=== PATIENT | male | born 1960 | race Caucasian/White ===

== ENCOUNTER 2016-10-20 19:30 | Inpatient (IN) | payer OTHER ==
[~2016-10-20] VITALS: Ht 177.8 cm; Wt 85.0 kg
[2016-10-20] MEDS ORDERED: ONDANSETRON INJ 2 MG/ML 2 ML VIAL IV STA (20:05)
[2016-10-20] MEDS ORDERED: MoRPHine SULFATE 4 MG/ML 1 ML CARP\\VIAL IV STA (20:05)
[2016-10-20] MEDS ORDERED: SODIUM CHLORIDE 0.9% 1000ML 1,000 ML IV STA ×2 (20:05→21:56)
--- NOTE | 2016-10-20 20:11 | EMERGENCY ROOM VISIT NOTE ---
History Report prepared by Nestor: Ryanne Mustafa Under the Supervision of: Dr. Zia Cantu M.D. First contact with patient: 19:48 Chief Complaint: ABDOMINAL PAIN Stated Complaint: PAIN IN STOMACH AREA History of Present Illness The patient is a 56 year old male who presents to the Emergency Room with complaints of a worsening abdominal pain starting four hours ago. The patient states that he has had the pain intermittently the past 2 years that only lasted 15 minutes a piece. He notes that he ate dinner eight hours ago and felt fine after dinner. He complains of hot flashes, diaphoresis, chills, nausea, vomiting, and the pain radiating into his back. He currently rates his pain as an 8/10 in severity. The patient denies abdominal surgeries, shortness of breath , cough, congestion, constipation, diarrhea, leg swelling, and urinary symptoms. He notes that it is not worse with exertion. He denies a history of gallstones, but notes that he has a family history of gallbladder issues. Source of History: patient Onset: four hours ago Position: abdomen Symptom Intensity: 8/10 Quality: other (radiating) Timing: worsening Associated Symptoms: + chills, + diaphoresis, + nausea, + vomiting, + back pain, No cough, No SOB, No diarrhea, No urinary symptoms Note: The patient complains of hot flashes. The patient denies abdominal surgeries, congestion, constipation, leg swelling, being worse with exertion, and a history of gallbladder issues. Review of Systems See HPI for pertinent positives and negatives. A total of ten systems were reviewed and were otherwise negative. Past Medical & Surgical Medical Problems: (1) Acute cholecystitis (2) No known problems Family History FHx: gallbladder disease FHx: gallstones Social History Smoking Status: Never Smoker Marital Status: Housing Status: lives with significant other Occupation Status: employed Current/Historical Medications No Active Prescriptions or Reported Meds Allergies Coded Allergies: No Known Allergies (Unverified , 10/20/16) Physical Exam Vital Signs Date Time Temp Pulse Resp B/P (MAP) Pulse Ox O2 Delivery O2 Flow Rate FiO2 10/21/16 01:04 72 18 154/94 92 Room Air 10/21/16 00:01 66 18 162/96 95 Room Air 10/20/16 20:42 63 18 187/107 97 Room Air 10/20/16 19:37 36.6 63 20 174/88 96 Room Air Physical Exam GENERAL: Awake, alert, uncomfortable but in NAD HENT: Normocephalic, atraumatic. Dry mucus membranes. EYES: Normal conjunctiva. Sclera non-icteric. NECK: Supple. No nuchal rigidity. FROM. No JVD. RESPIRATORY: Clear to auscultation. CARDIAC: Regular rate, normal rhythm. Extremities warm and well perfused. Pulses equal. ABDOMEN: Soft, non-distended. Positive Davis's sign tenderness in RUQ. Mild epigastric tenderness. No peritoneal signs. No rebound or guarding. No masses. RECTAL: Deferred. MUSCULOSKELETAL: Chest examination reveals no tenderness. The back is symmetrical on inspection without obvious abnormality. There is no CVA tenderness to palpation. No joint edema. LOWER EXTREMITIES: Calves are equal size bilaterally and non-tender. No edema. No discoloration. NEURO: Normal sensorium. No sensory or motor deficits noted. SKIN: No rash or jaundice noted. Medical Decision & Procedures ER Provider Diagnostic Interpretation: Radiology results as stated below per my review and radiologist interpretation: CHEST ONE VIEW PORTABLE CLINICAL HISTORY: Chest pain. COMPARISON STUDY: No previous studies for comparison. FINDINGS: The lung volumes are normal. There is no pneumothorax or pleural effusion. No consolidation is identified. Mild opacity along the left heart border likely reflects atelectasis or epicardial fat pad. There is borderline cardiomegaly without evidence of pulmonary edema. IMPRESSION: 1. No acute cardiopulmonary findings. 2. Borderline cardiomegaly. Electronically signed by: Rangel Reed M.D. 10/20/2016 8:17 PM Dictated Date/Time: 10/20/2016 8:17 PM ABDOMINAL ULTRASOUND, RIGHT UPPER QUADRANT HISTORY: RUQ pain - +gallstones, r/o cholecystitis. COMPARISON: None. FINDINGS: Hepatic echogenicity is increased consistent with fatty infiltration. A hypoechoic area within the gallbladder fossa suggests fatty sparing. There is no biliary ductal dilatation. The common bile duct measures 6 mm in caliber. There are numerous gallstones within the gallbladder. There is no gallbladder wall thickening. No pericholecystic fluid is present. The pancreas is largely obscured. No right hydronephrosis is present. IMPRESSION: 1. Cholelithiasis. No gallbladder wall thickening or pericholecystic fluid. 2. Fatty infiltration of the liver with suspected sparing within the gallbladder fossa. 3. No biliary ductal dilatation. 4. Largely obscured pancreas. Electronically signed by: Rangel Reed M.D. 10/20/2016 9:42 PM Dictated Date/Time: 10/20/2016 9:[address] ABDOMEN & PELVIS: Distended gallbladder with several large gallstones. Possible mild wall thickening. No pericholecystic fluid or bruit biliary dilatation. correlate clinically for cholecystitis. Fatty liver. No free intraperitoneal fluid or air. No bowel obstruction. Appendix is normal in appearance. Spleen, pancreas are unremarkable. Small left renal cyst. Radiologist: Tramaine Gutiérrez M.D. Study ready at 23:49 and initial results transmitted at 00:43. Laboratory Results 10/20/16 20:10 Red Blood Count 5.58, Mean Corpuscular Volume 85.8, Mean Corpuscular Hemoglobin 30.1, Mean Corpuscular Hemoglobin Concent 35.1, Mean Platelet Volume 10.1, Neutrophils (%) (Auto) 65.6, Lymphocytes (%) (Auto) 24.3, Monocytes (%) (Auto) 8.1, Eosinophils (%) (Auto) 1.2, Basophils (%) (Auto) 0.4, Neutrophils # (Auto) 7.01, Lymphocytes # (Auto) 2.60, Monocytes # (Auto) 0.86, Eosinophils # (Auto) 0.13, Basophils # (Auto) 0.04 10/20/16 20:10 Test 10/20/16 20:10 10/21/16 00:32 White Blood Count 10.68 K/uL (4.8-10.8) Red Blood Count 5.58 M/uL (4.7-6.1) Hemoglobin 16.8 g/dL (14.0-18.0) Hematocrit 47.9 % (42-52) Mean Corpuscular Volume 85.8 fL (80-100) Mean Corpuscular Hemoglobin 30.1 pg (25-34) Mean Corpuscular Hemoglobin Concent 35.1 g/dl (32-36) Platelet Count 222 K/uL (130-400) Mean Platelet Volume 10.1 fL (7.4-10.4) Neutrophils (%) (Auto) 65.6 % Lymphocytes (%) (Auto) 24.3 % Monocytes (%) (Auto) 8.1 % Eosinophils (%) (Auto) 1.2 % Basophils (%) (Auto) 0.4 % Neutrophils # (Auto) 7.01 K/uL (1.4-6.5) Lymphocytes # (Auto) 2.60 K/uL (1.2-3.4) Monocytes # (Auto) 0.86 K/uL (0.11-0.59) Eosinophils # (Auto) 0.13 K/uL (0-0.5) Basophils # (Auto) 0.04 K/uL (0-0.2) RDW Standard Deviation 41.7 fL (36.4-46.3) RDW Coefficient of Variation 13.2 % (11.5-14.5) Immature Granulocyte % (Auto) 0.4 % Immature Granulocyte # (Auto) 0.04 K/uL (0.00-0.02) Anion Gap 8.0 mmol/L (3-11) Est Creatinine Clear Calc Drug Dose 70.1 ml/min Estimated GFR () 77.3 Estimated GFR (Non- 66.7 BUN/Creatinine Ratio 17.6 (10-20) Calcium Level 9.2 mg/dl (8.5-10.1) Total Bilirubin 0.4 mg/dl (0.2-1) Direct Bilirubin < 0.1 mg/dl (0-0.2) Aspartate Amino Transf (AST/SGOT) 14 U/L (15-37) Alanine Aminotransferase (ALT/SGPT) 41 U/L (12-78) Alkaline Phosphatase 64 U/L (45-117) Troponin I < 0.015 ng/ml (0-0.045) Total Protein 8.2 gm/dl (6.4-8.2) Albumin 4.1 gm/dl (3.4-5.0) Lipase 225 U/L (73-393) Urine Color YELLOW Urine Appearance CLEAR (CLEAR) Urine pH 6.5 (4.5-7.5) Urine Specific [place] > 1.045 (1.000-1.030) Urine Protein NEG (NEG) Urine Glucose (UA) NEG (NEG) Urine Ketones NEG (NEG) Urine Occult Blood NEG (NEG) Urine Nitrite NEG (NEG) Urine Bilirubin NEG (NEG) Urine Urobilinogen NEG (NEG) Urine Leukocyte Esterase NEG (NEG) Laboratory results reviewed by me Medications Administered Medications (Trade) Dose Ordered Sig/[place] Route Start Time Stop Time Status Last Admin Dose Admin Sodium Chloride 1,000 ml @ 999 mls/hr Q1H1M STAT IV 10/20/16 20:05 10/20/16 21:05 DC 10/20/16 20:21 999 MLS/HR Morphine Sulfate (MoRPHine SULFATE INJ) 4 mg NOW STAT IV 10/20/16 20:05 10/20/16 20:08 DC 10/20/16 20:21 4 MG Ondansetron HCl (Zofran Inj) 4 mg NOW STAT IV 10/20/16 20:05 10/20/16 20:08 DC 10/20/16 20:21 4 MG Morphine Sulfate (MoRPHine SULFATE INJ) 8 mg NOW STAT IV 10/20/16 20:40 10/20/16 20:42 DC 10/20/16 20:50 8 MG Hydromorphone HCl (Dilaudid Inj) 1 mg NOW STAT IV 10/20/16 21:06 10/20/16 21:08 DC 10/20/16 21:14 1 MG Sodium Chloride 1,000 ml @ 999 mls/hr Q1H1M STAT IV 10/20/16 21:56 10/20/16 22:56 DC 10/21/16 00:16 999 MLS/HR Sodium Chloride 1,000 ml @ 999 mls/hr Q1H1M STAT IV 10/21/16 00:04 10/21/16 01:04 DC 10/21/16 00:16 999 MLS/HR Hydromorphone HCl (Dilaudid Inj) 1 mg NOW STAT IV 10/21/16 00:04 10/21/16 00:05 DC 10/21/16 00:13 1 MG Ceftriaxone Sodium (Rocephin Inj) 1 gm NOW STAT IV 10/21/16 01:06 10/21/16 01:07 DC 10/21/16 01:48 1 GM Metronidazole (Flagyl / Nss) 500 mg NOW STAT IV 10/21/16 01:06 10/21/16 01:07 DC 10/21/16 01:48 500 MG Procedure Bed Side Ultra Sound: Shows multiple gallstones particularly within the gallbladder and neck. CBD appears normal. Questionable pericholecystic fluid. ECG Indication: abdominal pain Rate (beats per minute): 61 Rhythm: normal sinus Findings: no acute ischemic change, other (normal axis) ED Course 1950: The patient was evaluated in room C2B. A complete history and physical exam was performed. 2004: Ordered Zofran Inj 4 mg IV, Morphine Sulfate 4 mg IV, NSS 1000 ml @ 999 mls/hr IV. 2039: Ordered Morphine Sulfate 8 mg IV. 2105: Ordered Dilaudid Inj 1 mg IV. 2153: I reevaluated the patient and he is doing alright. 2155: Ordered NSS 1000 ml @ 999 mls/hr IV. 0: I reevaluated the patient and he is still in pain. 0004: Ordered Dilaudid Inj 1 mg IV, NSS 1000 ml @ 999 mls/hr IV. 0106: Ordered Metronidazole 500 mg IV, Rocephin Inj 1 gm IV. 0113: Discussed the patient's case with Dr. Bhardwaj. He agrees that the patient should not be discharged home. He asked that the patient be admitted to internal medicine and he will further evaluate the patient in the morning. He recommends doing a hiatal scan. 0129: Discussed the patient's case with Dr. Moore. The patient will be evaluated for further treatment and disposition. Medical Decision I reviewed the patient's past medical history, medications, and the nursing notes as described above. Differential diagnoses include Cholecystitis vs biliary colic, peptic ulcer disease, gastritis, ACS. The patient is a 56-year-old gentleman no significant PMHX who presents emergency Department worsening right upper quadrant abdominal pain per history of present illness. Arrival the patient appears uncomfortable but in no acute distress. Afebrile with stable vital signs. Limited bedside ultrasound of the patient's gallbladder shows multiple large gallstones with question pericholecystic fluid otherwise CBD within normal limits. Formal ultrasound negative for pericholecystic fluid or wall thickening. Labs unremarkable with WBC, LFTs, lipase within normal limits. However, patient required significant doses of narcotics to manage his pain. On reevaluation the patient still has significant tenderness in the right upper quadrant although no peritoneal signs. Considering this, a CT scan was done which showed question of gallbladder wall thickening, recommending clinical correlation. In this setting there is concern for early cholecystitis. Given CTX and flagyl. I discussed the case with surgery, Dr. Bhardwaj, who agreed with admission for IV antibiotics and observation to see how the patient's symptoms evolve, considering the patient has normal labs and no clear radiographic evidence at this time. Further, recommends that a HIDA scan could help clarify if obstruction is present. Patient admitted to medicine for management. Consults Time Called: 101 Consulting Physician: Dr. Bhardwaj- Surgery Returned Call: 112 Discussed the patient's case with Dr. Bhardwaj. He agrees that the patient should not be discharged home. He asked that the patient be admitted to internal medicine and he will further evaluate the patient in the morning. He recommends doing a hiatal scan. Additional Consults: Time Called: 118 Consulted Physician: Dr. Moore- Internal Medicine Returned Call: 128 Additional Comments: Discussed the patient's case with Dr. Moore. The patient will be evaluated for further treatment and disposition. Impression Primary Impression: Cholecystitis Scribe Attestation The scribe's documentation has been prepared under my direction and personally reviewed by me in its entirety. I confirm that the note above accurately reflects all work, treatment, procedures, and medical decision making performed by me. Departure Information Dispostion Being Evaluated By Hospitalist Prescriptions No Active Prescriptions or Reported Meds Referrals Arnaldo Spence M.D. (PCP) Patient Instructions My [facility]
--- NOTE | 2016-10-20 20:19 | DIAGNOSTIC IMAGING REPORT ---
CHEST ONE VIEW PORTABLE CLINICAL HISTORY: Chest pain. COMPARISON STUDY: No previous studies for comparison. FINDINGS: The lung volumes are normal. There is no pneumothorax or pleural effusion. No consolidation is identified. Mild opacity along the left heart border likely reflects atelectasis or epicardial fat pad. There is borderline cardiomegaly without evidence of pulmonary edema. IMPRESSION: 1. No acute cardiopulmonary findings. 2. Borderline cardiomegaly. Electronically signed by: Rangel Reed M.D. 10/20/2016 8:17 PM Dictated Date/Time: 10/20/2016 8:17 PM
[2016-10-20 20:25] LABS: BASO % 0.4 %; BASO ABS # 0.04 K/uL (0-0.2); COMPLETE YES; EOS % 1.2 %; HEMATOCRIT 47.9 % (42-52); IG% 0.4 %; LYMPH % 24.3 %; MEAN CELL VOLUME 85.8 fL (80-100); MEAN CORPUSCULAR HEMOGLOBIN 30.1 pg (25-34); MEAN CORPUSCULAR HGB CONC 35.1 g/dl (32-36); MEAN PLATELET VOLUME 10.1 fL (7.4-10.4); MONO % 8.1 %; NEUT % 65.6 %; PLATELET COUNT 222 K/uL (130-400); RED BLOOD COUNT 5.58 M/uL (4.7-6.1); WHITE BLOOD COUNT 10.68 K/uL (4.8-10.8)
[2016-10-20 20:39] LABS: ALT/SGPT 41 U/L (12-78); BLOOD UREA NITROGEN 21 mg/dl (7-18); BUN/CREATININE RATIO 17.6 (10-20); CALCIUM 9.2 mg/dl (8.5-10.1); CARBON DIOXIDE 26 mmol/L (21-32); CHLORIDE 107 mmol/L (98-107); GLUCOSE 135 mg/dl (70-99); SODIUM 141 mmol/L (136-145)
[2016-10-20] MEDS ORDERED: MoRPHine SULFATE 10 MG/ML CARP/VIAL IV STA (20:40)
[2016-10-20 20:45] LABS: ALKALINE PHOSPHATASE 64 U/L (45-117); AST/SGOT 14 U/L (15-37)
[2016-10-20] MEDS ORDERED: HYDROmorphone INJ 0.5 MG/0.5 ML SYR IV STA (21:06)
[2016-10-20] MEDS ORDERED: HYDROmorphone INJ 1 MG/ML SYR ONE (21:13)
--- NOTE | 2016-10-20 21:43 | DIAGNOSTIC IMAGING REPORT ---
ABDOMINAL ULTRASOUND, RIGHT UPPER QUADRANT HISTORY: RUQ pain - +gallstones, r/o cholecystitis. COMPARISON: None. FINDINGS: Hepatic echogenicity is increased consistent with fatty infiltration. A hypoechoic area within the gallbladder fossa suggests fatty sparing. There is no biliary ductal dilatation. The common bile duct measures 6 mm in caliber. There are numerous gallstones within the gallbladder. There is no gallbladder wall thickening. No pericholecystic fluid is present. The pancreas is largely obscured. No right hydronephrosis is present. IMPRESSION: 1. Cholelithiasis. No gallbladder wall thickening or pericholecystic fluid. 2. Fatty infiltration of the liver with suspected sparing within the gallbladder fossa. 3. No biliary ductal dilatation. 4. Largely obscured pancreas. Electronically signed by: Rangel Reed M.D. 10/20/2016 9:42 PM Dictated Date/Time: 10/20/2016 9:39 PM
[2016-10-21] MEDS ORDERED: HYDROmorphone INJ 0.5 MG/0.5 ML SYR IV STA (00:04)
[2016-10-21] MEDS ORDERED: SODIUM CHLORIDE 0.9% 1000ML 1,000 ML IV STA (00:04)
[2016-10-21] MEDS ORDERED: HYDROmorphone INJ 1 MG/ML SYR ONE (00:11)
[2016-10-21 00:45] LABS: URINE APPEARANCE CLEAR (CLEAR); URINE BILIRUBIN NEG (NEG); URINE COLOR YELLOW; URINE NITRITE NEG (NEG); URINE PH 6.5 (4.5-7.5); URINE SPECIFIC GRAVITY > 1.045 (1.000-1.030); UROBILINOGEN NEG (NEG); ZZUR CULT IF INDIC CLEAN CATCH NO
[2016-10-21] MEDS ORDERED: OPTIRAY 320 IV PRN (00:45)
[2016-10-21 00:50] LABS: MANUAL MICROSCOPIC REQUIRED? NO; REVIEW REQ? NO
[2016-10-21] MEDS ORDERED: CEFTRIAXONE SOD INJ 1 GM ADDVIAL IV STA (01:06)
[2016-10-21] MEDS ORDERED: METRONIDAZOLE 500MG / 100ML NSS IV STA (01:06)
[2016-10-21 03:00] VITALS: BP 175/77; PULSE 71; TEMP 36.8; O2SAT 94; Ht 177.8 cm; Wt 85.0 kg
[2016-10-21] MEDS: HYDROmorphone INJ 0.5 MG/0.5 ML SYR IV PRN ×4 (03:35→21:38)
[2016-10-21] MEDS: ONDANSETRON INJ 2 MG/ML 2 ML VIAL IV PRN ×2 (03:35→21:37)
[2016-10-21 04:07] VITALS: BP 144/77; PULSE 69
[2016-10-21] MEDS: AMPICILLIN/SULBACTAM SOD INJ 3,000 MG in SODIUM CHLORIDE 0.9% 100ML 100 ML IV SCH ×4 (04:10→21:39)
--- NOTE | 2016-10-21 04:46 | HISTORY & PHYSICAL EXAMINATION ---
DATE OF ADMISSION: 10/21/2016 PRIMARY CARE PHYSICIAN: Dr. Spence. CHIEF COMPLAINT: Upper abdominal pain, likely a band since 1:30 p.m. HISTORY OF PRESENT COMPLAINT: He is a 56-year-old male without significant past medical history, apparently complaining of upper abdominal pain like a belch after food since 1:30 p.m. The pain was initially mild and then at around 4:30, it got worse, associated with nausea and he vomited once and he was feeling hot and clammy. He came to the emergency room. At the ER, he was afebrile and plus was 72, blood pressure 154/94, saturating 92% on room air. His blood counts including eosinophils came out to be unremarkable. Ultrasound did show gallstone and clinically, this suspicious for acute cholecystitis. The ER physician did talk with the on-call surgeon who advised the patient to come in and he will evaluate for probable surgery down the line. A HIDA scan will order as well. PAST MEDICAL HISTORY: Nothing significant. PAST SURGICAL HISTORY: Nothing significant. FAMILY HISTORY: Gallstones and gallbladder disease. SOCIAL HISTORY: He is and lives with his significant other. He never smoked and drinks occasionally. ALLERGIES: NKDA. MEDICATIONS: Nothing in the chart. PHYSICAL EXAMINATION: GENERAL: On examination in the emergency room, he was not having any acute symptoms. Pain was controlled. Temperature 36.6, pulse of 72, blood pressure 154/94, saturation 92% on room air. HEENT: Unremarkable. NECK: Supple. No JVD, no bruit. CHEST: Clear to auscultate bilaterally. HEART: S1, S2 regular. ABDOMEN: Soft, and tender in the right upper quadrant, more in the right upper quadrant than in the epigastrium. Davis sign positive. Bowel sounds present. RECTAL: Deferred. EXTREMITIES: Negative. CENTRAL NERVOUS SYSTEM: He was alert, awake, oriented x3. No focal sensory and/or motor deficit appreciated. LABORATORY DATA: Noted today white count was 10.68, H&H 16.8/47.9, and platelet was 222. Sodium 141, potassium 4.0, chloride 107, carbon dioxide 26, BUN 21, creatinine 1.20, and random glucose 135. LFTs unremarkable. Troponin less than 0.01. Lipase 225. UA examination unremarkable. IMAGING DATA: Chest x-ray reported as borderline cardiomegaly. Ultrasound of the gallbladder did show cholelithiasis, no gallbladder wall thickening or pericholecystic fluid. Fatty infiltration of the liver with suspected ____ within the gallbladder fossa, largely obscured pancreas. CT of the abdomen and pelvis has been pending at that time. EKG was in sinus rhythm, rate of 61 per minute, normal axis and no significant ST-T wave changes. IMPRESSION AND PLAN: 1. Right upper quadrant pain very suggestive of cholecystitis and have gallstone on ultrasound. We will get a HIDA scan and the patient has been waiting for CT of the abdomen and pelvis. Started on intravenous Unasyn. We will keep n.p.o. after midnight today and surgery has been consulted for probable cholecystectomy. 2. Deep venous thrombosis prophylaxis with subcutaneous heparin. 3. Code status. He will be a full code. 4. Gastrointestinal prophylaxis with Protonix. In my clinical judgment, the beneficiary meets criteria as per CMS for 2 midnight stay in the hospital. MTDD
[2016-10-21] MEDS: D5NSS + 20MEQ KCL 1,000 ML IV SCH ×3 (04:58→19:41)
[2016-10-21 07:25] VITALS: BP 141/79; PULSE 80; TEMP 36.9; O2SAT 95
[2016-10-21 07:28] LABS: PROTHROMBIN TIME (PATIENT) 10.2 SECONDS (9.0-12.0)
--- NOTE | 2016-10-21 07:28 | DIAGNOSTIC IMAGING REPORT ---
ABDOMEN AND PELVIS CT WITH IV CONTRAST CT DOSE: 450.01 mGy.cm HISTORY: Upper abd pain - r/o cholecystits/diverticulitis TECHNIQUE: Multiaxial CT images of the abdomen and pelvis were performed following the use of intravenous contrast. A dose lowering technique was utilized adhering to the principles of ALARA. COMPARISON STUDY: Abdominal ultrasound 10/20/2016. FINDINGS: Mild dependent changes seen within the lung bases. The heart is mildly enlarged. Tiny fat-containing umbilical hernia. Mild hepatic steatosis. The spleen, adrenal glands, pancreas are unremarkable. A few subcentimeter bilateral renal hypodense lesions. These are too small to characterize. No hydronephrosis. Normal bladder. No pelvic free fluid. No bowel wall thickening or obstruction. Normal appendix. Gallbladder is mildly distended. There are 2 gallstones with the largest measuring 2.4 cm. No definite gallbladder wall thickening. There may be minimal pericholecystic inflammatory change. IMPRESSION: 1. Mildly distended gallbladder containing gallstones. There may be minimal pericholecystic inflammatory change. This raises the possibility of acute cholecystitis. Clinical correlation recommended. 2. Hepatic steatosis. 3. No bowel wall thickening or obstruction. Electronically signed by: Endy Montemayor M.D. 10/21/2016 7:26 AM Dictated Date/Time: 10/21/2016 7:06 AM
--- NOTE | 2016-10-21 11:09 | Pre-Operative Consultation ---
History General Date of Service: Oct 21, 2016. HPI HPI: The patient is a 56 year old male being seen for symptomatic cholelithiasis/ acute cholecystitis. He was admitted with complaints of a worsening abdominal pain starting yesterday. The patient states that he has had the pain intermittently the past 2 years that only lasted 15 minutes a piece. He notes that he ate dinner eight hours ago and felt fine after dinner. He complains of hot flashes, diaphoresis, chills, nausea, vomiting, and the pain radiating into his back. The patient denies abdominal surgeries, shortness of breath, cough, congestion, constipation, diarrhea, leg swelling, and urinary symptoms. Historian: patient Procedure Urgency: Acute Risk Assessment Daily beta parrish use?: No Problem List Medical Problems: (1) Cholecystitis Status: Acute Medical & Surgical History Past Medical History: no pertinent history Past Surgical History: no surgical history Family History Family History: gallbladder disease Social History Hx Tobacco Use In Past Year?: No Smoking Status: Never Smoker Alcohol: none Drug Use: none Marital status: Housing status: lives with family Occupation status: employed Allergies Allergies: Coded Allergies: No Known Allergies (Unverified , 10/20/16) Medications Current Inpatient Medications Current Inpatient Medications Medications (Trade) Dose Ordered Sig/[place] Route Start Time Stop Time Status Last Admin Dose Admin Ioversol (Optiray 320) 100 ml UD PRN IV 10/21/16 00:45 10/25/16 00:44 Heparin Sodium (Porcine) (Heparin Sq 5000 Unit/0.5ml) 5,000 unit Q8H SQ 10/21/16 14:00 11/20/16 13:59 Ondansetron HCl (Zofran Inj) 4 mg Q6H PRN IV 10/21/16 02:30 11/20/16 02:29 10/21/16 03:35 4 MG Ampicillin Sodium/ Sulbactam Sodium 3000 mg/Sodium Chloride 108 ml @ 200 mls/hr Q6H IV 10/21/16 04:00 10/31/16 03:59 10/21/16 09:55 200 MLS/HR Potassium Chloride/Dextrose/ Sod Cl 1,000 ml @ 125 mls/hr Q8H IV 10/21/16 04:00 11/20/16 03:59 10/21/16 04:58 125 MLS/HR Hydromorphone HCl (Dilaudid Inj) 0.5 mg Q3H PRN IV 10/21/16 02:30 11/04/16 02:29 10/21/16 03:35 0.5 MG Review of Systems Review of Systems Constitutional: chills, diaphoresis, denies fever, denies malaise, denies weakness Eyes: reports: no symptoms ENT: reports: no symptoms reported Cardiovascular: denies: chest pain, chest tightness, chest pressure, palpitations, syncope Respiratory: denies: cough, short of breath, stridor, cyanosis Gastrointestinal: abdominal pain, denies constipation, denies diarrhea, nausea , denies vomiting Genitourinary - Male: reports: no symptoms Musculoskeletal: back pain, denies joint pain, denies joint swelling, denies muscle stiffness, denies neck pain Integumentary: denies change in hair/nails, denies dryness, denies lumps, denies rash Neurologic: reports: no symptoms Psychiatric: reports: no symptoms Endocrine: no symptoms Hematologic / Lymphatic: no symptoms Allergic / Immunologic: no symptoms Physical Exam Physical Exam General Appearance: + WD/WN, No distress Ears, Nose, Throat: + normal ENT inspection Neck: No abnormal inspection, No tracheal deviation, No lymphadenophy, No stiffness, No tenderness Respiratory: No chest tenderness, No accessory muscle use, No decreased breath sounds, No rhonchi, No stridor, No wheezing Cardiovascular: No tachycardia, No gallop/S3, No diastolic murmur, No gallop/S4 , No bradycardia, No systolic murmur Abdomen: + tenderness, No abnormal bowel sounds, No rebound, No distension, No hernia, No organomegaly, No guarding Extremities: No deformity, No swelling, No calf tenderness, No inflammation Neurologic/Psychiatric: No motor deficit/weakness, No disorientation, No sensory deficit Skin Characteristics: + diaphoresis, No pallor, No jaundice, No rash Lymphatic: No abnormal adenopathy Diagnostics Labs Labs Results Past 24 Hours Test 10/20/16 20:10 10/21/16 00:32 10/21/16 06:53 Range/Units White Blood Count 10.68 4.8-10.8 K/uL Red Blood Count 5.58 4.7-6.1 M/uL Hemoglobin 16.8 14.0-18.0 g/dL Hematocrit 47.9 42-52 % Mean Corpuscular Volume 85.8 80-100 fL Mean Corpuscular Hemoglobin 30.1 25-34 pg Mean Corpuscular Hemoglobin Concent 35.1 32-36 g/dl Platelet Count 222 130-400 K/uL Mean Platelet Volume 10.1 7.4-10.4 fL Neutrophils (%) (Auto) 65.6 % Lymphocytes (%) (Auto) 24.3 % Monocytes (%) (Auto) 8.1 % Eosinophils (%) (Auto) 1.2 % Basophils (%) (Auto) 0.4 % Neutrophils # (Auto) 7.01 1.4-6.5 K/uL Lymphocytes # (Auto) 2.60 1.2-3.4 K/uL Monocytes # (Auto) 0.86 0.11-0.59 K/uL Eosinophils # (Auto) 0.13 0-0.5 K/uL Basophils # (Auto) 0.04 0-0.2 K/uL RDW Standard Deviation 41.7 36.4-46.3 fL RDW Coefficient of Variation 13.2 11.5-14.5 % Immature Granulocyte % (Auto) 0.4 % Immature Granulocyte # (Auto) 0.04 0.00-0.02 K/uL Sodium Level 141 136-145 mmol/L Potassium Level 4.0 3.5-5.1 mmol/L Chloride Level 107 98-107 mmol/L Carbon Dioxide Level 26 21-32 mmol/L Anion Gap 8.0 3-11 mmol/L Blood Urea Nitrogen 21 7-18 mg/dl Creatinine 1.20 0.60-1.40 mg/dl Est Creatinine Clear Calc Drug Dose 70.1 ml/min Estimated GFR () 77.3 Estimated GFR (Non- 66.7 BUN/Creatinine Ratio 17.6 10-20 Random Glucose 135 70-99 mg/dl Calcium Level 9.2 8.5-10.1 mg/dl Total Bilirubin 0.4 0.2-1 mg/dl Direct Bilirubin < 0.1 0-0.2 mg/dl Aspartate Amino Transf (AST/SGOT) 14 15-37 U/L Alanine Aminotransferase (ALT/SGPT) 41 12-78 U/L Alkaline Phosphatase 64 45-117 U/L Troponin I < 0.015 0-0.045 ng/ml Total Protein 8.2 6.4-8.2 gm/dl Albumin 4.1 3.4-5.0 gm/dl Lipase 225 73-393 U/L Urine Color YELLOW Urine Appearance CLEAR CLEAR Urine pH 6.5 4.5-7.5 Urine Specific [place] > 1.045 1.000-1.030 Urine Protein NEG NEG Urine Glucose (UA) NEG NEG Urine Ketones NEG NEG Urine Occult Blood NEG NEG Urine Nitrite NEG NEG Urine Bilirubin NEG NEG Urine Urobilinogen NEG NEG Urine Leukocyte Esterase NEG NEG Prothrombin Time 10.2 9.0-12.0 SECONDS Prothromb Time International Ratio 1.0 0.9-1.1 Diagnostic Radiology Diagnostic Radiology ABDOMEN AND PELVIS CT WITH IV CONTRAST CT DOSE: 450.01 mGy.cm HISTORY: Upper abd pain - r/o cholecystits/diverticulitis TECHNIQUE: Multiaxial CT images of the abdomen and pelvis were performed following the use of intravenous contrast. A dose lowering technique was utilized adhering to the principles of ALARA. COMPARISON STUDY: Abdominal ultrasound 10/20/2016. FINDINGS: Mild dependent changes seen within the lung bases. The heart is mildly enlarged. Tiny fat-containing umbilical hernia. Mild hepatic steatosis. The spleen, adrenal glands, pancreas are unremarkable. A few subcentimeter bilateral renal hypodense lesions. These are too small to characterize. No hydronephrosis. Normal bladder. No pelvic free fluid. No bowel wall thickening or obstruction. Normal appendix. Gallbladder is mildly distended. There are 2 gallstones with the largest measuring 2.4 cm. No definite gallbladder wall thickening. There may be minimal pericholecystic inflammatory change. IMPRESSION: 1. Mildly distended gallbladder containing gallstones. There may be minimal pericholecystic inflammatory change. This raises the possibility of acute cholecystitis. Clinical correlation recommended. 2. Hepatic steatosis. 3. No bowel wall thickening or obstruction ABDOMINAL ULTRASOUND, RIGHT UPPER QUADRANT HISTORY: RUQ pain - +gallstones, r/o cholecystitis. COMPARISON: None. FINDINGS: Hepatic echogenicity is increased consistent with fatty infiltration. A hypoechoic area within the gallbladder fossa suggests fatty sparing. There is no biliary ductal dilatation. The common bile duct measures 6 mm in caliber. There are numerous gallstones within the gallbladder. There is no gallbladder wall thickening. No pericholecystic fluid is present. The pancreas is largely obscured. No right hydronephrosis is present. IMPRESSION: 1. Cholelithiasis. No gallbladder wall thickening or pericholecystic fluid. 2. Fatty infiltration of the liver with suspected sparing within the gallbladder fossa. 3. No biliary ductal dilatation. 4. Largely obscured pancreas. Impression Assessment and Plan Assessment and Plan Symptomatic cholelithiasis/acute cholecystitis -IV abx -IVF -HIDA scan -to OR in tomorrow for lap saleem
[2016-10-21] MEDS ORDERED: MoRPHine SULFATE 2 MG/ML CARP IV ONE (12:15)
--- NOTE | 2016-10-21 13:10 | DIAGNOSTIC IMAGING REPORT ---
NUCLEAR MEDICINE HEPATOBILIARY SCAN HISTORY: RT upper quadrant pain /cholecystitis COMPARISON: Abdomen and pelvis CTA 1217. TECHNIQUE: Immediately following the intravenous administration of 5.3 mCi Tc-99m Choletec, dynamic anterior abdominal imaging was performed. FINDINGS: Uniform hepatic tracer accumulation is shown. Prompt intrahepatic biliary excretion is seen. The common bile duct and small bowel are visualized at 10 minutes. The gallbladder was not visualized on the initial 60 minutes. Therefore, 2 mg of intravenous morphine was administered and an additional 30 minutes of imaging was performed. The gallbladder was not identified on the additional 30 minutes. IMPRESSION: Above findings are consistent with cystic duct obstruction/acute cholecystitis. Electronically signed by: Endy Montemayor M.D. 10/21/2016 1:09 PM Dictated Date/Time: 10/21/2016 1:07 PM
[2016-10-21] MEDS ORDERED: HEPARIN SOD 5000 UNIT/0.5 ML CARP SQ SCH (14:00)
[2016-10-21 15:40] VITALS: BP 148/87; PULSE 73; TEMP 36.9; O2SAT 94
--- NOTE | 2016-10-21 16:35 | Progress Note ---
Internal Med Progress Note Date of Service: Oct 21, 2016. Provider Documentation: SUBJECTIVE: does not have any pain of discomfort on rt upper quadrant no nausea tolerating clears OBJECTIVE: Vital Signs-as noted below Exam: General-no sign of distress Eyes-sclera non icteric ENT-NAD Neck-no JVD Lungs-CTA, no wheeze or rales Heart-regular S1/S2 Abdomen-soft, minimum RUQ tenderness, no Davis's sign , no rebound Extremities-no lower ext edema or rash Neuro-AAO x3, no focal deficit Lab data as noted below. ASSESSMENT & PLAN: ACUTE CHOLECYSTITIS : presented with RUQ pain USG shows : Cholelithiasis. No gallbladder wall thickening or pericholecystic fluid. HIDA scan : consistent with cystic duct obstruction/acute cholecystitis. appreciate input form Surgery scheduled for Cholecystectomy tomorrow ordered for NPO past midnight FULL CODE DVT PROPHYLAXIS D/c Sub q heparin -scheduled for laparoscopic cholecystectomy tomorrow ordered for SCD /teds DISPOSITION expected to be discharged home when medically stable Vital Signs: Date Time Temp Pulse Resp B/P (MAP) Pulse Ox O2 Delivery O2 Flow Rate FiO2 10/21/16 15:40 36.9 73 19 148/87 (107) 94 Room Air 10/21/16 08:26 Room Air 10/21/16 07:25 36.9 80 17 141/79 (99) 95 Room Air 10/21/16 04:07 69 144/77 (99) 10/21/16 03:00 36.8 71 18 175/77 (109) 94 Room Air 10/21/16 03:00 Room Air 10/21/16 03:00 Room Air 10/21/16 02:49 72 143/89 10/21/16 01:04 72 18 154/94 92 Room Air 10/21/16 00:01 66 18 162/96 95 Room Air 10/20/16 20:42 63 18 187/107 97 Room Air 10/20/16 19:37 36.6 63 20 174/88 96 Room Air Lab Results: Results Past 24 Hours Test 10/20/16 20:10 10/21/16 00:32 10/21/16 06:53 Range/Units White Blood Count 10.68 4.8-10.8 K/uL Red Blood Count 5.58 4.7-6.1 M/uL Hemoglobin 16.8 14.0-18.0 g/dL Hematocrit 47.9 42-52 % Mean Corpuscular Volume 85.8 80-100 fL Mean Corpuscular Hemoglobin 30.1 25-34 pg Mean Corpuscular Hemoglobin Concent 35.1 32-36 g/dl Platelet Count 222 130-400 K/uL Mean Platelet Volume 10.1 7.4-10.4 fL Neutrophils (%) (Auto) 65.6 % Lymphocytes (%) (Auto) 24.3 % Monocytes (%) (Auto) 8.1 % Eosinophils (%) (Auto) 1.2 % Basophils (%) (Auto) 0.4 % Neutrophils # (Auto) 7.01 1.4-6.5 K/uL Lymphocytes # (Auto) 2.60 1.2-3.4 K/uL Monocytes # (Auto) 0.86 0.11-0.59 K/uL Eosinophils # (Auto) 0.13 0-0.5 K/uL Basophils # (Auto) 0.04 0-0.2 K/uL RDW Standard Deviation 41.7 36.4-46.3 fL RDW Coefficient of Variation 13.2 11.5-14.5 % Immature Granulocyte % (Auto) 0.4 % Immature Granulocyte # (Auto) 0.04 0.00-0.02 K/uL Sodium Level 141 136-145 mmol/L Potassium Level 4.0 3.5-5.1 mmol/L Chloride Level 107 98-107 mmol/L Carbon Dioxide Level 26 21-32 mmol/L Anion Gap 8.0 3-11 mmol/L Blood Urea Nitrogen 21 7-18 mg/dl Creatinine 1.20 0.60-1.40 mg/dl Est Creatinine Clear Calc Drug Dose 70.1 ml/min Estimated GFR () 77.3 Estimated GFR (Non- 66.7 BUN/Creatinine Ratio 17.6 10-20 Random Glucose 135 70-99 mg/dl Calcium Level 9.2 8.5-10.1 mg/dl Total Bilirubin 0.4 0.2-1 mg/dl Direct Bilirubin < 0.1 0-0.2 mg/dl Aspartate Amino Transf (AST/SGOT) 14 15-37 U/L Alanine Aminotransferase (ALT/SGPT) 41 12-78 U/L Alkaline Phosphatase 64 45-117 U/L Troponin I < 0.015 0-0.045 ng/ml Total Protein 8.2 6.4-8.2 gm/dl Albumin 4.1 3.4-5.0 gm/dl Lipase 225 73-393 U/L Urine Color YELLOW Urine Appearance CLEAR CLEAR Urine pH 6.5 4.5-7.5 Urine Specific [place] > 1.045 1.000-1.030 Urine Protein NEG NEG Urine Glucose (UA) NEG NEG Urine Ketones NEG NEG Urine Occult Blood NEG NEG Urine Nitrite NEG NEG Urine Bilirubin NEG NEG Urine Urobilinogen NEG NEG Urine Leukocyte Esterase NEG NEG Prothrombin Time 10.2 9.0-12.0 SECONDS Prothromb Time International Ratio 1.0 0.9-1.1
[2016-10-21 22:48] VITALS: BP 130/77; PULSE 78; TEMP 36.8; O2SAT 93
[2016-10-22] VITALS (8 sets, daily range): BP systolic 117–154; BP diastolic 69–91; PULSE 69–87; TEMP 36.5–36.8; O2SAT 91–100
[2016-10-22] MEDS: AMPICILLIN/SULBACTAM SOD INJ 3,000 MG in SODIUM CHLORIDE 0.9% 100ML 100 ML IV SCH ×4 (03:24→21:29)
[2016-10-22] MEDS: D5NSS + 20MEQ KCL 1,000 ML IV SCH ×3 (03:25→21:29)
[2016-10-22] MEDS: HYDROmorphone INJ 0.5 MG/0.5 ML SYR IV PRN ×3 (04:07→22:24)
[2016-10-22] MEDS ORDERED: CEFAZOLIN 2000 MG/60 ML D5W 60 ML IV SCH (06:00)
--- NOTE | 2016-10-22 06:07 | Surgery Progress Note ---
Surgery Progress Note Date of Service Oct 22, 2016. Subjective Post OP Day: HD 2 + complaints (pain almost gone), + flatus, + pain controlled, + diet (NPO), No nausea, No vomiting Objective Vital Signs: Date Time Temp Pulse Resp B/P (MAP) Pulse Ox O2 Delivery O2 Flow Rate FiO2 10/21/16 22:48 36.8 78 16 130/77 (94) 93 Room Air 10/21/16 19:40 Room Air 10/21/16 15:40 36.9 73 19 148/87 (107) 94 Room Air 10/21/16 08:26 Room Air 10/21/16 07:25 36.9 80 17 141/79 (99) 95 Room Air General Appearance: WD/WN, no apparent distress Head: normocephalic, atraumatic Neck: supple, trachea midline Respiratory/Chest: lungs clear Cardiovascular: regular rate, rhythm Abdomen: normal bowel sounds, non distended, soft, + tenderness (moderate) Extremities: non-tender, no pedal edema Laboratory Results: Results Past 24 Hours Test 10/21/16 06:53 Range/Units Prothrombin Time 10.2 9.0-12.0 SECONDS Prothromb Time International Ratio 1.0 0.9-1.1 Assessment & Plan acute cholecystitis -IV abx -feeling better -HIDA c/w acute cholecystitis -to OR today; Dr Garcia will perform lap saleem
[2016-10-22] MEDS ORDERED: DEXAMETHASONE SOD INJ 4 MG/ML VIAL ONE (11:38)
[2016-10-22] MEDS ORDERED: PROPOFOL IV EMULSION 10 MG/ML 20 ML VIAL IV ONE (11:38)
[2016-10-22] MEDS ORDERED: ONDANSETRON INJ 2 MG/ML 2 ML VIAL ONE (11:38)
[2016-10-22] MEDS ORDERED: ROCURONIUM BROMIDE 10 MG/ML 5 ML VIAL ONE ×2 (11:38→12:58)
[2016-10-22] MEDS ORDERED: LIDOCAINE HCL 2% 2 ML VIAL (20MG/ML) ONE (11:38)
[2016-10-22] MEDS ORDERED: MIDAZOLAM HCL 1 MG/ML 2ML VIAL ONE (11:39)
[2016-10-22] MEDS ORDERED: FENTANYL CITRATE INJ 50 MCG/1 ML 2 ML VIAL ONE (11:39)
[2016-10-22] MEDS ORDERED: NALOXONE HCL 0.4 MG/1 ML VIAL/CARP IV PRN (11:45)
[2016-10-22] MEDS ORDERED: HYDROmorphone INJ 2 MG/ML SYR/VIAL IV PRN (11:45)
[2016-10-22] MEDS ORDERED: EpHEDrine SULFATE INJ 50 MG/ML AMP IV PRN (11:45)
[2016-10-22] MEDS ORDERED: FENTANYL CITRATE INJ 50 MCG/1 ML 2 ML VIAL IV PRN (11:45)
[2016-10-22] MEDS ORDERED: FLUMAZENIL 0.1 MG/1 ML 10 ML VIAL IV PRN (11:45)
[2016-10-22] MEDS ORDERED: ATROPINE SULFATE 0.1 MG/ML 5ML SYR IV PRN (11:45)
[2016-10-22] MEDS ORDERED: LABETALOL HCL IV 5 MG/ML 20ML IV PRN (11:45)
[2016-10-22] MEDS ORDERED: MEPERIDINE HCL 25 MG/ML CARP IV PRN (11:45)
[2016-10-22] MEDS ORDERED: PHENYLEPHRINE 100MCG/ML 5ML SYR IV PRN (11:45)
[2016-10-22] MEDS ORDERED: ONDANSETRON INJ 2 MG/ML 2 ML VIAL IV PRN (11:45)
[2016-10-22] MEDS ORDERED: LIDOCAINE HCL 1% 20 ML VIAL ONE (11:56)
[2016-10-22] MEDS ORDERED: BUPIVACAINE 0.5 % 5 MG/1 ML MPF 30ML VIAL ONE (11:57)
--- NOTE | 2016-10-22 11:57 | History & Physical Bridge Note ---
H&P Re-Evaluation Bridge Note: I have examined the patient, reviewed the History & Physical and in the interval since the performance of the History & Physical I have noted the following changes of clinical significance: No changes noted Patient examined at bedside this morning. Afebrile, vitals stable and normal overnight, no acute events. States abdominal pain has now greatly improved. Denies N/V, has been NPO since midnight. Abdomen soft, non distended, non tender to palpation. Indications, risks, benefits and potential complications of laparoscopic, possible open cholecystectomy discussed at length with patient and his family. All questions answered to apparent satisfaction. Patient agrees to proceed with operation and freely signed the consent form.
[2016-10-22] MEDS ORDERED: HYDROmorphone INJ 2 MG/ML SYR/VIAL ONE (12:30)
[2016-10-22] MEDS ORDERED: NEOSTIGMINE METHYLSULFATE 5 MG/5 ML SYR ONE (13:28)
[2016-10-22] MEDS ORDERED: GLYCOPYRROLATE INJ 0.2 MG/ML VIAL ONE (13:28)
[2016-10-22] MEDS ORDERED: OXYCODONE/ACETAMINOPHEN 5-325 TAB PO PRN (14:30)
--- NOTE | 2016-10-22 14:42 | [facility] Operative Report ---
Operative Report Operative Date Oct 22, 2016. Pre-Operative Diagnosis Acute Cholecystitis Post-Operative Diagnosis Acute Cholecystitis Procedure(s) Performed Laparoscopic Cholecystectomy Surgeon Dr. Garcia Dental Front Office Assistant Surgeon(s) none Estimated Blood Loss 5 ml Findings Inflamed gallbladder with inflammatory rind and pus in gallbladder. Large gallstone within the gallbladder. Liver appeared normal. Fluids 1000cc Specimens A. Gallbladder Drains None Anesthesia General anesthesia, 20ml of Local anesthetic: 1% Lidocaine + 1/4% Marcaine Disposition Recovery Room / PACU Indications Berry Villa is a 56 year old man with acute cholecystitis and cholelithiasis. Indications, risks, benefits and potential complications of laparoscopic, possible open cholecystectomy, possible intraoperative cholangiogram discussed at length with the patient and his family. All questions answered to apparent satisfaction. Patient chose to proceed with surgery and freely signed the consent form. Description of Procedure Patient was brought to the operating room and identified as Berry Villa, . He was placed on the operating table in supine position. Anesthesia was induced, and patient was intubated without difficulty. The abdomen was prepped and draped in the usual sterile fashion. A time out was held, verifying correct patient, procedure, positioning, pre operative antibiotics, allergies and available equipment; all were in agreement with time out. A 10mm incision was made just above the umbilicus and carried down through subcutaneous tissue. The fascia was identified, and two Kulwinder clamps were placed for upward traction. The fascia was carefully incised using sharp cautery. The peritoneum was identified, and two hemostats were placed for upward traction. The peritoneum was opened using Metzenbaum scissors, taking care to preserve the underlying abdominal contents. The 10mm Oliva port was placed and insufflation was established. The 10mm endoscope was inserted, and the abdomen explored. The gallbladder was observed to be distended with an inflammatory rind surrounding; the liver appeared normal. A 5mm port was placed in the sub-xiphoid position under direct vision. Two more 5mm ports were placed in the right abdomen approximately 4cm inferior to the costal margin under direct vision. The dome of the gallbladder was grasped and retracted cranially. A second grasper was used to retract the neck of the gallbladder laterally to expose the area of dissection. The gallbladder was aspirated of a few milliliters of cloudy brown fluid to allow for grasping to retract. Omental adhesions were gently brought down using a [place] grasper. Rind was opened both medially and laterally to expose the area of dissection. The cystic artery was identified and dissected out, until it was clearly visualized to be leading into the gallbladder. Behind and slightly lateral to this structure, the cystic duct was identified and carefully dissected free from surrounding fibrinous tissue. This was also clearly visualized to be leading into the gallbladder, with no other extraneous structures; the liver was visualized behind and between these two structures to verify the critical view of safety. The cystic artery was clipped and cut. The cystic duct was also clipped and cut. Next, the gallbladder was dissected off the liver bed using electrocautery. Once liberated from the gallbladder fossa, [id number] endoscope was switched out for the 5mm endoscope, and the 10mm endocatch bag was placed through the umbilical port. The gallbladder was placed in the endocatch bag. The gallbladder was removed from the abdomen; during this process, the umbilical port site incision was extended to allow for the gallbladder, containing a large gallstone, to exit. The gallstone was palpated and estimated to be approximately 3cm long x 2cm wide. The gallbladder was then passed off the field to be taken to pathology. The gallbladder fossa was then inspected, and hemostasis was achieved using electrocautery. The site was thoroughly irrigated and evacuated of irrigation fluid. The ports were then removed under direct vision and observed to be hemostatic. Insufflation was then released. The instrument and sponge counts were verified to be correct x 2 by the nurse in charge. Fascia was closed at the umbilical port site using 0 Vicryl in figure of eight fashion. Skin was closed at all port sites using 4-0 Monocryl, and Dermabond was applied. The patient was then awakened from anesthesia, extubated without difficulty, and taken to the PACU, having suffered no untoward events. I attest to the content of the Intraoperative Record and any orders documented therein. Any exceptions are noted below.
--- NOTE | 2016-10-22 14:53 | Anesthesiology Progress Note ---
Anesthesia Post Op Note Date & Time Oct 22, 2016 at 14:53 Vital Signs Pain Intensity: 0 Vital Signs Past 12 Hours Date Time Temp Pulse Resp B/P (MAP) Pulse Ox O2 Delivery O2 Flow Rate FiO2 10/22/16 14:40 83 16 146/96 94 Mask 10 10/22/16 14:30 97 16 158/90 93 Mask 15 10/22/16 14:20 92 20 146/85 93 Oxymask 15 10/22/16 14:14 36.4 97 16 150/96 93 Oxymask 15 10/22/16 08:48 Room Air 10/22/16 06:50 36.7 69 19 142/87 (105) 92 Room Air Notes Mental Status: alert / awake / arousable, participated in evaluation Pt Amnestic to Procedure: Yes Nausea / Vomiting: adequately controlled Pain: adequately controlled Airway Patency, RR, SpO2: stable & adequate BP & HR: stable & adequate Hydration State: stable & adequate Anesthetic Complications: no major complications apparent
[2016-10-22] MEDS: OXYCODONE/ACETAMINOPHEN 5-325 TAB PO PRN ×2 (16:28→20:28)
--- NOTE | 2016-10-22 18:29 | Progress Note ---
Internal Med Progress Note Date of Service: Oct 22, 2016. Provider Documentation: SUBJECTIVE: s/p laparoscopic cholecystectomy today recovering well post op minimum abdominal pain OBJECTIVE: Vital Signs-as noted below Exam: General-no sign of distress Eyes-sclera non icteric ENT-NAD Neck-no JVD Lungs-CTA, no wheeze or rales Heart-regular S1/S2 Abdomen-soft, minimum RUQ tenderness, no Davis's sign , no rebound Extremities-no lower ext edema or rash Neuro-AAO x3, no focal deficit Lab data as noted below. ASSESSMENT & PLAN: ACUTE CHOLECYSTITIS : presented with RUQ pain USG shows : Cholelithiasis. No gallbladder wall thickening or pericholecystic fluid. HIDA scan : consistent with cystic duct obstruction/acute cholecystitis. appreciate input form Surgery S/P Laparoscopic Cholecystectomy today : found to have : Inflamed gallbladder with inflammatory rind and pus in gallbladder. Large gallstone within the gallbladder. continue pain control diet /further post surgical management as per Surgery FULL CODE DVT PROPHYLAXIS SCD/TEds increase activity as tolerated DISPOSITION expected to be discharged home when medically stable Vital Signs: Date Time Temp Pulse Resp B/P (MAP) Pulse Ox O2 Delivery O2 Flow Rate FiO2 10/22/16 19:41 36.7 87 18 154/76 (102) 92 Room Air 10/22/16 17:17 36.7 76 18 121/79 (93) 97 Nasal Cannula 3.0 10/22/16 16:45 94 Nasal Cannula 4.0 10/22/16 16:30 97 Nasal Cannula 3.0 10/22/16 16:21 36.6 72 20 151/85 (107) 100 Nasal Cannula 3.0 10/22/16 15:52 36.5 73 18 152/91 (111) 96 Nasal Cannula 4.0 10/22/16 15:00 37.5 75 16 139/86 95 Nasal Cannula 4 10/22/16 14:50 82 16 142/92 94 Nasal Cannula 4 10/22/16 14:40 83 16 146/96 94 Mask 10 10/22/16 14:30 97 16 158/90 93 Mask 15 10/22/16 14:20 92 20 146/85 93 Oxymask 15 10/22/16 14:14 36.4 97 16 150/96 93 Oxymask 15 10/22/16 08:48 Room Air 10/22/16 06:50 36.7 69 19 142/87 (105) 92 Room Air 10/21/16 22:48 36.8 78 16 130/77 (94) 93 Room Air
[2016-10-23] VITALS (9 sets, daily range): BP systolic 124–156; BP diastolic 73–89; PULSE 66–83; TEMP 36.6–36.9; O2SAT 87–94
[2016-10-23] MEDS: D5NSS + 20MEQ KCL 1,000 ML IV SCH ×3 (03:46→20:22)
[2016-10-23] MEDS: AMPICILLIN/SULBACTAM SOD INJ 3,000 MG in SODIUM CHLORIDE 0.9% 100ML 100 ML IV SCH ×4 (03:46→21:37)
[2016-10-23] MEDS: OXYCODONE/ACETAMINOPHEN 5-325 TAB PO PRN ×3 (05:44→18:55)
[2016-10-23] MEDS: HYDROmorphone INJ 0.5 MG/0.5 ML SYR IV PRN ×2 (07:34→16:13)
[2016-10-23] MEDS ORDERED: DOCUSATE SODIUM 100 MG CAP PO STA (08:24)
--- NOTE | 2016-10-23 08:38 | Surgery Progress Note ---
Surgery Progress Note Date of Service Oct 23, 2016. Subjective Post OP Day: 1 Patient examined at bedside this morning. Afebrile, vitals stable on 3L O2 overnight, room air this morning; no acute events overnight. States his pain is well controlled, though he got up for a walk and now is very sore. Tolerating clear liquids without N/V. Ambulating and voiding without difficulty. No flatus / BM yet. No complaints this morning. Objective Vital Signs: Date Time Temp Pulse Resp B/P (MAP) Pulse Ox O2 Delivery O2 Flow Rate FiO2 10/23/16 07:39 90 Room Air 10/23/16 07:34 93 Nasal Cannula 2.0 10/23/16 07:30 87 Room Air 10/23/16 07:30 Room Air 10/23/16 07:23 36.9 66 17 146/88 (107) 90 Room Air 10/23/16 03:27 36.6 66 17 124/73 (90) 93 Room Air 10/22/16 23:10 Room Air 10/22/16 22:55 36.8 74 17 117/69 (85) 91 Room Air 10/22/16 19:41 36.7 87 18 154/76 (102) 92 Room Air 10/22/16 17:17 36.7 76 18 121/79 (93) 97 Nasal Cannula 3.0 10/22/16 16:45 94 Nasal Cannula 4.0 10/22/16 16:30 97 Nasal Cannula 3.0 10/22/16 16:21 36.6 72 20 151/85 (107) 100 Nasal Cannula 3.0 10/22/16 15:52 36.5 73 18 152/91 (111) 96 Nasal Cannula 4.0 10/22/16 15:00 37.5 75 16 139/86 95 Nasal Cannula 4 10/22/16 14:50 82 16 142/92 94 Nasal Cannula 4 10/22/16 14:40 83 16 146/96 94 Mask 10 10/22/16 14:30 97 16 158/90 93 Mask 15 10/22/16 14:20 92 20 146/85 93 Oxymask 15 10/22/16 14:14 36.4 97 16 150/96 93 Oxymask 15 10/22/16 08:48 Room Air General Appearance: WD/WN, no apparent distress Head: normocephalic, atraumatic Neck: supple Respiratory/Chest: lungs clear, normal breath sounds Cardiovascular: regular rate, rhythm Abdomen: soft, + distended, + tenderness (appropriately tender to palpation) Incision(s): clean, dry, intact, no erythema, no drainage Laboratory Results: Results Past 24 Hours Test 10/23/16 08:15 Range/Units AM labs pending Assessment & Plan Berry Villa is a 56 year old man admitted with acute cholecystitis and a large gallstone who is now POD 1 s/p laparoscopic cholecystectomy. There were no complications, patient tolerated the procedure well. -Percocet for pain control as needed -May advance to a regular diet for lunch -IVF hydration until tolerating adequate PO intake -F/U today's labs -Post op prophylactic lovenox, encourage ambulation -Likely discharge this evening or tomorrow, depending on progress with the above -Will continue to follow Yuliana Garcia MD 10/23/16
[2016-10-23 08:40] LABS: HEMATOCRIT 40.3 % (42-52); MEAN CELL VOLUME 87.2 fL (80-100); MEAN CORPUSCULAR HEMOGLOBIN 30.3 pg (25-34); MEAN CORPUSCULAR HGB CONC 34.7 g/dl (32-36); MEAN PLATELET VOLUME 9.1 fL (7.4-10.4); PLATELET COUNT 185 K/uL (130-400); RED BLOOD COUNT 4.62 M/uL (4.7-6.1); WHITE BLOOD COUNT 8.85 K/uL (4.8-10.8)
[2016-10-23 08:57] LABS: BUN/CREATININE RATIO 11.6 (10-20); CREATININE 0.94 mg/dl (0.60-1.40); POTASSIUM 3.8 mmol/L (3.5-5.1)
[2016-10-23] MEDS: SENNA 8.6 MG TAB PO SCH (09:34)
--- NOTE | 2016-10-23 10:55 | Anesthesiology Progress Note ---
Anesthesia Post Op Note Date & Time Oct 23, 2016 at 10:54 Vital Signs Pain Intensity: 4.0 Vital Signs Past 12 Hours Date Time Temp Pulse Resp B/P (MAP) Pulse Ox O2 Delivery O2 Flow Rate FiO2 10/23/16 10:36 90 Room Air 10/23/16 07:39 90 Room Air 10/23/16 07:34 93 Nasal Cannula 2.0 10/23/16 07:30 87 Room Air 10/23/16 07:30 Room Air 10/23/16 07:23 36.9 66 17 146/88 (107) 90 Room Air 10/23/16 03:27 36.6 66 17 124/73 (90) 93 Room Air 10/22/16 23:10 Room Air 10/22/16 22:55 36.8 74 17 117/69 (85) 91 Room Air Notes Mental Status: alert / awake / arousable, participated in evaluation Pt Amnestic to Procedure: Yes Nausea / Vomiting: adequately controlled Pain: adequately controlled Airway Patency, RR, SpO2: stable & adequate BP & HR: stable & adequate Hydration State: stable & adequate Anesthetic Complications: no major complications apparent
--- NOTE | 2016-10-23 18:31 | Progress Note ---
Subjective Date of Service: Oct 23, 2016. Subjective Pt evaluation today including: conversation w/ patient, physical exam, lab review, review of studies, review of inpatient medication list Saw/examined the patient in room 316 He is resting comfortably in bed states he became short of breath after walking cannot take a deep breath in due to pain at surgical site Denies chest pain denies fevers/chills Problem List Medical Problems: (1) Cholecystitis Status: Acute Review of Systems Constitutional: No fever, No chills Respiratory: + shortness of breath, No cough, No sputum, No dyspnea on exertion Cardiac: No chest pain Abdomen: + pain, No nausea, No vomiting, No diarrhea, No constipation, No GI bleeding Heme: No abnormal bleeding/bruising Medications Current Inpatient Medications Medications (Trade) Dose Ordered Sig/[place] Route Start Time Stop Time Status Last Admin Dose Admin Ioversol (Optiray 320) 100 ml UD PRN IV 10/21/16 00:45 10/25/16 00:44 Ondansetron HCl (Zofran Inj) 4 mg Q6H PRN IV 10/21/16 02:30 11/20/16 02:29 10/21/16 21:37 4 MG Ampicillin Sodium/ Sulbactam Sodium 3000 mg/Sodium Chloride 108 ml @ 200 mls/hr Q6H IV 10/21/16 04:00 10/31/16 03:59 10/23/16 16:13 200 MLS/HR Potassium Chloride/Dextrose/ Sod Cl 1,000 ml @ 125 mls/hr Q8H IV 10/21/16 04:00 11/20/16 03:59 10/23/16 11:46 125 MLS/HR Hydromorphone HCl (Dilaudid Inj) 0.5 mg Q3H PRN IV 10/21/16 02:30 11/04/16 02:29 10/23/16 16:13 0.5 MG Oxycodone/ Acetaminophen (Percocet 5-325mg Tab) 1 tab Q4H PRN PO 10/22/16 14:30 11/05/16 14:29 Oxycodone/ Acetaminophen (Percocet 5-325mg Tab) 2 tab Q4H PRN PO 10/22/16 14:30 11/05/16 14:29 10/23/16 15:07 2 TAB Docusate Sodium (coLACE CAP) 100 mg BID PO 10/23/16 21:00 11/22/16 20:59 Senna (Senokot Tab) 8.6 mg QAM PO 10/23/16 09:00 11/22/16 08:59 10/23/16 09:34 8.6 MG Objective Vital Signs Date Time Temp Pulse Resp B/P (MAP) Pulse Ox O2 Delivery O2 Flow Rate FiO2 10/23/16 14:56 36.8 83 18 156/89 (111) 90 Room Air 10/23/16 11:23 36.9 71 17 144/86 (105) 90 Room Air 10/23/16 10:36 90 Room Air 10/23/16 07:39 90 Room Air 10/23/16 07:34 93 Nasal Cannula 2.0 10/23/16 07:30 87 Room Air 10/23/16 07:30 Room Air 10/23/16 07:23 36.9 66 17 146/88 (107) 90 Room Air 10/23/16 03:27 36.6 66 17 124/73 (90) 93 Room Air 10/22/16 23:10 Room Air 10/22/16 22:55 36.8 74 17 117/69 (85) 91 Room Air 10/22/16 19:41 36.7 87 18 154/76 (102) 92 Room Air 10/22/16 17:17 36.7 76 18 121/79 (93) 97 Nasal Cannula 3.0 Physical Exam General Appearance: no apparent distress Respiratory/Chest: chest non-tender, lungs clear, normal breath sounds, no respiratory distress, no accessory muscle use Cardiovascular: regular rate, rhythm, no edema, no murmur Abdomen: normal bowel sounds, soft, + tenderness Laboratory Results Last 24 Hours Test 10/23/16 08:27 White Blood Count 8.85 K/uL Red Blood Count 4.62 M/uL Hemoglobin 14.0 g/dL Hematocrit 40.3 % Mean Corpuscular Volume 87.2 fL Mean Corpuscular Hemoglobin 30.3 pg Mean Corpuscular Hemoglobin Concent 34.7 g/dl RDW Standard Deviation 43.2 fL RDW Coefficient of Variation 13.5 % Platelet Count 185 K/uL Mean Platelet Volume 9.1 fL Sodium Level 138 mmol/L Potassium Level 3.8 mmol/L Chloride Level 104 mmol/L Carbon Dioxide Level 29 mmol/L Anion Gap 5.0 mmol/L Blood Urea Nitrogen 11 mg/dl Creatinine 0.94 mg/dl Est Creatinine Clear Calc Drug Dose 89.5 ml/min Estimated GFR () 103.9 Estimated GFR (Non- 89.6 BUN/Creatinine Ratio 11.6 Random Glucose 121 mg/dl Calcium Level 8.0 mg/dl Assessment and Plan This is a 56 year old male with no significant PMH presents with RUQ pain, acute cholecystitis Acute Cholecystitis RUQ U/S shows acute cholecystitis s/p lap saleem POD #1 doing well, shortness of breath noted if persistent, will obtain CXR, though this is likely secondary to pain with deep inhalation advance diet as per surgery likely d/c on 10/24 DVT ppx SCDs FULL CODE d/c home in AM (10/24)
[2016-10-23] MEDS: DOCUSATE SODIUM 100 MG CAP PO SCH (21:35)
[2016-10-24] MEDS: OXYCODONE/ACETAMINOPHEN 5-325 TAB PO PRN ×3 (00:19→09:01)
[2016-10-24] MEDS: AMPICILLIN/SULBACTAM SOD INJ 3,000 MG in SODIUM CHLORIDE 0.9% 100ML 100 ML IV SCH ×2 (04:01→09:32)
[2016-10-24] MEDS: D5NSS + 20MEQ KCL 1,000 ML IV SCH (04:01)
[2016-10-24 06:59] LABS: HEMATOCRIT 38.9 % (42-52); MEAN CELL VOLUME 87.6 fL (80-100); MEAN CORPUSCULAR HEMOGLOBIN 29.3 pg (25-34); MEAN CORPUSCULAR HGB CONC 33.4 g/dl (32-36); MEAN PLATELET VOLUME 9.7 fL (7.4-10.4); PLATELET COUNT 199 K/uL (130-400); RED BLOOD COUNT 4.44 M/uL (4.7-6.1); WHITE BLOOD COUNT 7.64 K/uL (4.8-10.8)
[2016-10-24 07:39] VITALS: BP 145/92; PULSE 74; TEMP 36.7; O2SAT 93
--- NOTE | 2016-10-24 08:54 | Discharge Instructions ---
Discharge Instructions Date of Service Oct 24, 2016. Admission Reason for Admission: Acute Cholecystitis Discharge Discharge Diagnosis / Problem: same Discharge Goals Goal(s): Decrease discomfort, Improve function Activity Recommendations Activity Limitations: as noted below No heavy lifting over 10 pounds for 2 weeks No strenuous activity walking and light activity is encourage No submerging incisions underwater for 2 weeks (bathing, swimming, hot tubs) No driving while taking narcotic pain medication or until you are pain free . Instructions / Follow-Up Instructions / Follow-Up You may shower and wash incisions gently with soap and water Surgical glue (purple) will fall off on its own Follow-up with Dr. Garcia in 2 weeks, please call office at [phone] to make an appointment Current Hospital Diet Patient's current hospital diet: Regular Diet Discharge Diet Recommended Diet: Regular Diet Procedures Procedures Performed: Laparoscopic Cholecystectomy Pending Studies Studies pending at discharge: yes List of pending studies: gallbladder pathology Medical Emergencies . Who to Call and When: Medical Emergencies: If at any time you feel your situation is an emergency, please call 911 immediately. . Non-Emergent Contact Non-Emergency issues call your: Primary Care Provider, Surgeon Call Non-Emergent contact if: you have a fever, temperature is above 101.5, your pain is not controlled, your pain is worsening, wound has increased drainage, wound has increased redness, wound has increased pain . "Provider Documentation" section prepared by Jade Martinez. . VTE Core Measure Inpt VTE Proph given/why not?: SCD's [place] Drug Monitoring Program Search Results: patient reviewed within database, no issues identified
[2016-10-24] MEDS ORDERED: OXYC-57 PO (08:55)
[2016-10-24] MEDS: DOCUSATE SODIUM 100 MG CAP PO SCH (09:01)
[2016-10-24] MEDS: SENNA 8.6 MG TAB PO SCH (09:01)
[2016-10-24 09:14] VITALS: BP 145/92; PULSE 74; TEMP 36.7; O2SAT 93
--- NOTE | 2016-10-24 09:43 | Surgery Progress Note ---
Surgery Progress Note Date of Service Oct 24, 2016. Subjective Post OP Day: 2 (s/p lap saleem) + feeling well, + ambulating, + flatus, + pain controlled (with oral pain medication), + diet (regular diet for dinner and breakfast), No complaints, No chest pain, No SOB, No bowel movement, No nausea, No vomiting Objective Vital Signs: Date Time Temp Pulse Resp B/P (MAP) Pulse Ox O2 Delivery O2 Flow Rate FiO2 10/24/16 09:14 36.7 74 17 93 Room Air 10/24/16 07:39 36.7 74 17 145/92 (109) 93 Room Air 10/24/16 07:29 Room Air 10/24/16 00:15 Room Air 10/23/16 23:10 36.8 81 14 153/84 (107) 94 Room Air 10/23/16 15:20 Room Air 10/23/16 14:56 36.8 83 18 156/89 (111) 90 Room Air 10/23/16 11:23 36.9 71 17 144/86 (105) 90 Room Air 10/23/16 10:36 90 Room Air General Appearance: WD/WN, no apparent distress Head: normocephalic, atraumatic Neck: trachea midline Respiratory/Chest: no respiratory distress, no accessory muscle use Abdomen: soft, + distended, + tenderness (appropriate post op) Incision(s): clean, dry, intact, no erythema, no drainage, findings (surgical glue present on each of the 4 incisions) Laboratory Results: Results Past 24 Hours Test 10/24/16 06:21 Range/Units White Blood Count 7.64 4.8-10.8 K/uL Red Blood Count 4.44 4.7-6.1 M/uL Hemoglobin 13.0 14.0-18.0 g/dL Hematocrit 38.9 42-52 % Mean Corpuscular Volume 87.6 80-100 fL Mean Corpuscular Hemoglobin 29.3 25-34 pg Mean Corpuscular Hemoglobin Concent 33.4 32-36 g/dl RDW Standard Deviation 43.5 36.4-46.3 fL RDW Coefficient of Variation 13.5 11.5-14.5 % Platelet Count 199 130-400 K/uL Mean Platelet Volume 9.7 7.4-10.4 fL Assessment & Plan 56 year-old ,POD # 2 s/p lap saleem, doing well, pain now controlled with oral pain medication, tolerating regular diet, vitals stable , and no further shortness of breath. Ambulating and urinating without difficulty. Passing flatus. Plan: May be discharged from surgical standpoint Rx and discharge instructions given Follow-up with Dr. Garcia in 2 weeks, office number given Dr. Garcia has seen and examined patient, agrees with above
--- NOTE | 2016-10-24 10:35 | Progress Note ---
Subjective Date of Service: Oct 24, 2016. Subjective Pt evaluation today including: conversation w/ patient, physical exam, lab review, review of studies, review of inpatient medication list Saw/examined the patient in room 316 Patient is doing well, pain improved no shortness of breath or chest pain Problem List Medical Problems: (1) Cholecystitis Status: Acute Review of Systems Constitutional: No fever, No chills Respiratory: No cough, No shortness of breath Cardiac: No chest pain Abdomen: No pain, No nausea, No vomiting, No diarrhea, No constipation, No GI bleeding Medications Current Inpatient Medications Medications (Trade) Dose Ordered Sig/[place] Route Start Time Stop Time Status Last Admin Dose Admin Ioversol (Optiray 320) 100 ml UD PRN IV 10/21/16 00:45 10/25/16 00:44 Ondansetron HCl (Zofran Inj) 4 mg Q6H PRN IV 10/21/16 02:30 11/20/16 02:29 10/21/16 21:37 4 MG Ampicillin Sodium/ Sulbactam Sodium 3000 mg/Sodium Chloride 108 ml @ 200 mls/hr Q6H IV 10/21/16 04:00 10/31/16 03:59 10/24/16 09:32 200 MLS/HR Potassium Chloride/Dextrose/ Sod Cl 1,000 ml @ 125 mls/hr Q8H IV 10/21/16 04:00 11/20/16 03:59 10/24/16 04:01 125 MLS/HR Hydromorphone HCl (Dilaudid Inj) 0.5 mg Q3H PRN IV 10/21/16 02:30 11/04/16 02:29 10/23/16 16:13 0.5 MG Oxycodone/ Acetaminophen (Percocet 5-325mg Tab) 1 tab Q4H PRN PO 10/22/16 14:30 11/05/16 14:29 Oxycodone/ Acetaminophen (Percocet 5-325mg Tab) 2 tab Q4H PRN PO 10/22/16 14:30 11/05/16 14:29 10/24/16 09:01 2 TAB Docusate Sodium (coLACE CAP) 100 mg BID PO 10/23/16 21:00 11/22/16 20:59 10/24/16 09:01 100 MG Senna (Senokot Tab) 8.6 mg QAM PO 10/23/16 09:00 11/22/16 08:59 10/24/16 09:01 8.6 MG Objective Vital Signs Date Time Temp Pulse Resp B/P (MAP) Pulse Ox O2 Delivery O2 Flow Rate FiO2 10/24/16 09:14 36.7 74 17 93 Room Air 10/24/16 07:39 36.7 74 17 145/92 (109) 93 Room Air 10/24/16 07:29 Room Air 10/24/16 00:15 Room Air 10/23/16 23:10 36.8 81 14 153/84 (107) 94 Room Air 10/23/16 15:20 Room Air 10/23/16 14:56 36.8 83 18 156/89 (111) 90 Room Air 10/23/16 11:23 36.9 71 17 144/86 (105) 90 Room Air 10/23/16 10:36 90 Room Air Physical Exam General Appearance: no apparent distress Respiratory/Chest: lungs clear, normal breath sounds, no respiratory distress, no accessory muscle use Cardiovascular: regular rate, rhythm, no edema, no murmur Abdomen: normal bowel sounds, non tender, soft Extremities: normal inspection, no pedal edema Neurologic/Psychiatric: no motor/sensory deficits, alert, normal mood/affect Laboratory Results Last 24 Hours Test 10/24/16 06:21 White Blood Count 7.64 K/uL Red Blood Count 4.44 M/uL Hemoglobin 13.0 g/dL Hematocrit 38.9 % Mean Corpuscular Volume 87.6 fL Mean Corpuscular Hemoglobin 29.3 pg Mean Corpuscular Hemoglobin Concent 33.4 g/dl RDW Standard Deviation 43.5 fL RDW Coefficient of Variation 13.5 % Platelet Count 199 K/uL Mean Platelet Volume 9.7 fL Assessment and Plan This is a 56 year old male with no significant PMH presents with RUQ pain, acute cholecystitis Acute Cholecystitis 10/24 POD #2; lap saleem d/c with percocet, appreciate surgery input d/c home today 10/23 RUQ U/S shows acute cholecystitis s/p lap saleem POD #1 doing well, shortness of breath noted if persistent, will obtain CXR, though this is likely secondary to pain with deep inhalation advance diet as per surgery likely d/c on 10/24 DVT ppx SCDs FULL CODE d/c home in AM (10/24)
--- NOTE | 2016-10-24 10:37 | Discharge Summary ---
Discharge Summary Date of Service Oct 24, 2016. Discharge Summary Admission Date: Oct 21, 2016 at 02:21 Discharge Date: Oct 24, 2016 Discharge Disposition: Home Principal Diagnosis: Acute Cholecystitis s/p Lap Cholecystectomy Medication Reconciliation New Medications: Oxycodone/Acetaminophen 5MG/325MG (Percocet 5MG/325MG) Tab 1-2 TABLETS PO Q4H PRN for Pain, #30 TAB Admission Information Physical Exam (per Admitting): DATE OF ADMISSION: 10/21/2016 PRIMARY CARE PHYSICIAN: Dr. Spence. CHIEF COMPLAINT: Upper abdominal pain, likely a band since 1:30 p.m. HISTORY OF PRESENT COMPLAINT: He is a 56-year-old male without significant past medical history, apparently complaining of upper abdominal pain like a belch after food since 1:30 p.m. The pain was initially mild and then at around 4:30, it got worse, associated with nausea and he vomited once and he was feeling hot and clammy. He came to the emergency room. At the ER, he was afebrile and plus was 72, blood pressure 154/94, saturating 92% on room air. His blood counts including eosinophils came out to be unremarkable. Ultrasound did show gallstone and clinically, this suspicious for acute cholecystitis. The ER physician did talk with the on-call surgeon who advised the patient to come in and he will evaluate for probable surgery down the line. A HIDA scan will order as well. PAST MEDICAL HISTORY: Nothing significant. PAST SURGICAL HISTORY: Nothing significant. FAMILY HISTORY: Gallstones and gallbladder disease. SOCIAL HISTORY: He is and lives with his significant other. He never smoked and drinks occasionally. ALLERGIES: NKDA. MEDICATIONS: Nothing in the chart. PHYSICAL EXAMINATION: GENERAL: On examination in the emergency room, he was not having any acute symptoms. Pain was controlled. Temperature 36.6, pulse of 72, blood pressure 154/94, saturation 92% on room air. HEENT: Unremarkable. NECK: Supple. No JVD, no bruit. CHEST: Clear to auscultate bilaterally. HEART: S1, S2 regular. ABDOMEN: Soft, and tender in the right upper quadrant, more in the right upper quadrant than in the epigastrium. Davis sign positive. Bowel sounds present. RECTAL: Deferred. EXTREMITIES: Negative. CENTRAL NERVOUS SYSTEM: He was alert, awake, oriented x3. No focal sensory and/or motor deficit appreciated. LABORATORY DATA: Noted today white count was 10.68, H&H 16.8/47.9, and platelet was 222. Sodium 141, potassium 4.0, chloride 107, carbon dioxide 26, BUN 21, creatinine 1.20, and random glucose 135. LFTs unremarkable. Troponin less than 0.01. Lipase 225. UA examination unremarkable. IMAGING DATA: Chest x-ray reported as borderline cardiomegaly. Ultrasound of the gallbladder did show cholelithiasis, no gallbladder wall thickening or pericholecystic fluid. Fatty infiltration of the liver with suspected ____ within the gallbladder fossa, largely obscured pancreas. CT of the abdomen and pelvis has been pending at that time. EKG was in sinus rhythm, rate of 61 per minute, normal axis and no significant ST-T wave changes. IMPRESSION AND PLAN: 1. Right upper quadrant pain very suggestive of cholecystitis and have gallstone on ultrasound. We will get a HIDA scan and the patient has been waiting for CT of the abdomen and pelvis. Started on intravenous Unasyn. We will keep n.p.o. after midnight today and surgery has been consulted for probable cholecystectomy. 2. Deep venous thrombosis prophylaxis with subcutaneous heparin. 3. Code status. He will be a full code. 4. Gastrointestinal prophylaxis with Protonix. In my clinical judgment, the beneficiary meets criteria as per CMS for 2 midnight stay in the hospital. Hospital Course This is a 56 year old male with no significant PMH presents with RUQ pain, acute cholecystitis Acute Cholecystitis 10/24 POD #2; lap saleem d/c with percocet, appreciate surgery input d/c home today 10/23 RUQ U/S shows acute cholecystitis s/p lap saleem POD #1 doing well, shortness of breath noted if persistent, will obtain CXR, though this is likely secondary to pain with deep inhalation advance diet as per surgery likely d/c on 10/24 DVT ppx SCDs FULL CODE d/c home in AM (10/24) Total time spent on discharge = 20 minutes This includes examination of the patient, discharge planning, medication reconciliation, and communication with other providers. Discharge Instructions Activity Recommendations Activity Limitations: as noted below No heavy lifting over 10 pounds for 2 weeks No strenuous activity walking and light activity is encourage No submerging incisions underwater for 2 weeks (bathing, swimming, hot tubs) No driving while taking narcotic pain medication or until you are pain free . Instructions / Follow-Up Instructions / Follow-Up You may shower and wash incisions gently with soap and water Surgical glue (purple) will fall off on its own Follow-up with Dr. Garcia in 2 weeks, please call office at [phone] to make an appointment Current Hospital Diet Patient's current hospital diet: Regular Diet Discharge Diet Recommended Diet: Regular Diet
== END 2016-10-24 10:57 | disposition home or self-care (01) | DRG 419 ==
LOC: C.EDB 19:35 → C.3E 10-21 02:21 → ENRESERV 10-21 02:43
PROVIDERS: ADMIT Internal Medicine; ATTEND Family Medicine
PROC: 0FT44ZZ Resection of Gallbladder, Percutaneous Endoscopic Approach (ICD-10-PCS; principal; 2016-10-22 07:15)
DX: K80.00 Calculus of gallbladder with acute cholecystitis without obstruction (principal)